=== PATIENT | female | born 1945 | race Caucasian/White ===

== ENCOUNTER 2017-05-26 08:41 | Day surgery (SDC) | payer MEDICARE ==
[2017-05-25 09:14] VITALS: BMI 26.2
[2017-05-26 09:37] LABS: #Basophils 0.1 thou/uL (0.0-0.2); #Eosinphils 0.5 thou/uL (0.0-0.7); #Lymphocytes 2.7 thou/uL (1.20-3.40); #Monocytes 0.9 thou/uL (0.11-0.59); %Basophils 1.3 % (0.0-1.0); %Eosinophils 5.3 % (0.0-10.0); %Lymphocytes 25.9 % (21.0-51.0); %Monocytes 8.6 % (0.0-10.0); %Neutrophils 58.9 % (42.0-75.0); Hemoglobin 14.1 g/dL (12.0-16.0); Mean Corpuscular HGB CONC 33.9 g/dL (32.0-36.0); Mean Corpuscular Hemoglobin 31.9 pg (27.0-31.0); Platelet Count 266 thou/uL (130-400); RBC Distribution Width 10.9 % (11.5-14.5); Red Blood Cell (RBC) Count 4.41 mill/uL (4.20-5.40); White Blood Cell (WBC) Count 10.2 thou/uL (4.8-10.8)
[2017-05-26 09:48] LABS: Anion Gap 13 mmol/L (10-20); BUN (Urea Nitrogen) 13 mg/dL (9.8-20.1); Calc. Creatinine Clearance 89 mL/min (70-130); Calcium 9.5 mg/dL (7.8-10.44); Carbon Dioxide 25 mmol/L (23-31); Chloride 106 mmol/L (98-107); Estimated GFR-MDRD Greater than 90; Glucose 101 mg/dL (83-110); Potassium 3.9 mmol/L (3.5-5.1); Sodium 140 mmol/L (136-145)
[2017-05-26] MEDS ORDERED: CEFAZOLIN/Water 2 GM/20 ML SYRINGE ONE (09:48)
[2017-05-26] MEDS ORDERED: Diprivan 20 ML ONE (10:28)
[2017-05-26] MEDS ORDERED: Promethazine HCl 25 MG/ML VIAL ONE (13:08)
[2017-05-26] MEDS ORDERED: hydrALAZINE 20 MG/ML VIAL ONE (13:43)
[2017-05-26] MEDS ORDERED: Ondansetron ODT 4 MG TAB ONE (15:17)
--- NOTE | 2017-05-26 21:07 | OP ---
DATE OF PROCEDURE: 05/26/2017 PREOPERATIVE DIAGNOSIS: Right knee posterior horn medial meniscus tear. POSTOPERATIVE DIAGNOSES: 1. Right knee posterior horn medial meniscus tear. 2. The patient had an impinging osteophyte off the tibia. 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 PROCEDURES PERFORMED: 1. Right knee arthroscopy with partial medial meniscectomy. 2. Debridement and shaving of aforementioned chondral damage as well as the impinging osteophyte. SURGEON: Hayes Cuellar M.D. AGRONOMY TEACHER: None. BLOOD LOSS: Minimal. COMPLICATIONS: None. ANESTHESIA: The patient had a general anesthetic as well as a local knee block. DISPOSITION: She did go to recovery in stable condition. INDICATIONS: This is a 72-year-old active female, who comes in after failing nonoperative treatment including injections. At this time, she opted to have surgery for meniscus tear. DESCRIPTION OF PROCEDURE: After all appropriate consent forms were explained and signed, she was berna en back to the operating room and at this time was given general anesthetic. Tourniquet was placed o n the right thigh and leg was then placed in an arthroscopic leg rodriguez. The limb was prepped and dr aped in the standard surgical fashion. Limb was exsanguinated and tourniquet was taken up to 300 mmH g. An inferolateral portal was established and the scope was placed into the knee joint. Needle loc alization technique was then used to make a medial working portal. Diagnostic arthroscopy commenced in the notch. The ACL and PCL probed and found to be intact. There was an impinging osteophyte and this was taken down with the shaver. There was also a small cyst off the anterior portion of the ACL as it inserted on the tibia and this was debrided as well. Medial compartment showed the patient to have a tear in the posterior horn and root area of the medial meniscus as well as a small radial tea r in the body and partial meniscectomy was performed using meniscal biter and shaver to both of these areas. The tibia and femur had some grade 2 chondromalacia noted and any unstable chondral flaps we re debrided. The lateral compartment was overall in excellent condition. The gutters were swept thr ough and no loose bodies were noted. Patellofemoral joint showed the patella to have some small area s of cartilage damage with no treatment needed. There was an area of grade 2 and central area with g rade 3 on the trochlea. Again, unstable chondral flaps were debrided. At this time, the scope was r emoved, the knee was drained. Portals were closed with simple nylon stitch. A bulky sterile dressin g was applied and the tourniquet was let down. Toes pinked up nicely. The patient was awakened and taken to the recovery room in stable condition. All counts were correct at the end of the case. She received preoperative IV antibiotics.
== END 2017-05-26 15:30 | disposition home or self-care (01) ==
LOC: SDC 08:41
PROVIDERS: ATTEND Orthopaedic Surgery
PROC: 0SBC4ZZ Excision of Right Knee Joint, Percutaneous Endoscopic Approach (ICD-10-PCS; principal; 2017-05-26)
DX: S83.241A Other tear of medial meniscus, current injury, right knee, initial encounter (principal); M25.761 Osteophyte, right knee; M94.261 Chondromalacia, right knee; M19.90 Unspecified osteoarthritis, unspecified site; J30.9 Allergic rhinitis, unspecified; M81.0 Age-related osteoporosis without current pathological fracture; M26.609 Unspecified temporomandibular joint disorder, unspecified side; I10 Essential (primary) hypertension; K21.9 Gastro-esophageal reflux disease without esophagitis; E78.5 Hyperlipidemia, unspecified; Z79.82 Long term (current) use of aspirin; Z79.899 Other long term (current) drug therapy; Z98.41 Cataract extraction status, right eye; Z98.42 Cataract extraction status, left eye; Z96.1 Presence of intraocular lens; Z98.890 Other specified postprocedural states
CPT/HCPCS: 29881; 80048; 85025; 93005; 96374 ×2; 97139; G8978; G8979; G8980; 36415; 93010; J0360; J2550; J2704; Q0162

== ENCOUNTER 2018-02-22 09:48 | Outpatient (CLI) | payer MEDICARE | END 2018-02-22 09:49 | disposition home or self-care (01) | LOC: BICMAMMO 09:48 | PROVIDERS: ATTEND Internal Medicine | DX: Z12.31 Encounter for screening mammogram for malignant neoplasm of breast (principal); R92.1 Mammographic calcification found on diagnostic imaging of breast; N63.10 Unspecified lump in the right breast, unspecified quadrant; N63.20 Unspecified lump in the left breast, unspecified quadrant | CPT/HCPCS: 77063; 77067 ==

== ENCOUNTER 2018-10-02 15:39 | Outpatient (CLI) | payer MEDICARE ==
--- NOTE | 2018-10-02 16:21 | ULT ---
Thyroid sonogram HISTORY: Thyroid nodule. FINDINGS: Right thyroid lobe is 3.9 cm in length. Near the inferior pole is a well-circumscribed pred ominantly homogeneous and isoechoic solid mass. 1.3 cm length by 1.2 cm depth. A 1.1 cm slightly complex cystic lesion is present near the superior pole. Isthmus is 0.5 cm. Left thyroid lobe is 4.1 cm. The inferior pole is a normal cervical heterogeneous slightly hypoechoic mass. IMPRESSION: Dominant nodule is 1.3 cm the inferior pole right thyroid gland, as detailed above. TI-RA DS level 3. Mildly suspicious. Consider sonographic follow-up.
== END 2018-10-02 15:40 | disposition home or self-care (01) ==
LOC: SCSULT 15:39
PROVIDERS: ATTEND Otolaryngology Plastic Surgery within the Head & Neck
DX: E04.1 Nontoxic single thyroid nodule (principal)
CPT/HCPCS: 76536

== ENCOUNTER 2019-06-07 07:31 | Outpatient (CLI) | payer MEDICARE ==
--- NOTE | 2019-06-07 08:11 | ULT ---
THYROID ULTRASOUND: COMPARISON: 10/02/2018. HISTORY: Followup thyroid nodule. FINDINGS: Thyroid isthmus measures 0.4 cm. Right thyroid lobe: 4.4 x 1.4 x 2.0 cm. Left thyroid lobe: 1.1 x 1.4 x 4.2 cm Thyroid nodules: Isoechoic nodule in the upper pole of the right thyroid lobe measures 1.1 x 0.5 x 0.8 cm. Solid isoec hoic nodule in the mid right thyroid lobe measures 1.3 x 1.3 x 1.2 cm. Increased vascularity is noted. Isoechoic solid nodule in the midpole of the left thyroid lobe measures 0.6 x 0.4 x 0.8 cm. Sm all anechoic cystic lesion in the upper pole of the left thyroid lobe, measures 0.4 cm. IMPRESSION: 1. Multiple solid nodules throughout the thyroid gland. Largest solid nodule is in the midpole of th e right thyroid lobe and currently measures 1.3 x 1.3 x 1.2 cm. Previously, this nodule measured 1.3 x 1.2 x 1.1 cm. No appreciable change. 2. TIRADS calculus score TR3, mildly suspicious. Followup imaging in 1 year is recommended. Transcribed Date/Time: 06/07/2019 8:18 AM
--- NOTE | 2019-06-07 09:15 | MMO ---
Bilateral MAMMO Bilat Screen [facility]. CLINICAL HISTORY: Patient is 74 years old and is seen for screening. The patient has no family history of breast cancer. The patient has no personal history of cancer. The patient has a history of right Excisional Biopsy in 1991 - benign. VIEWS: The views performed were: bilateral craniocaudal with tomosynthesis and bilateral mediolateral oblique with tomosynthesis. FILMS COMPARED: The present examination has been compared to prior imaging studies performed at [facility] on 12/18/2014, 01/19/2016, 02/07/2017 and 02/22/2018. This study has been interpreted with the assistance of computer-aided detection. MAMMOGRAM FINDINGS: The breasts are heterogeneously dense, which could obscure a lesion on mammography. There are benign appearing calcifications seen in both breasts. There are benign scattered densities in both breasts. There are no suspicious masses, suspicious calcifications, or new areas of architectural distortion. IMPRESSION: THERE IS NO MAMMOGRAPHIC EVIDENCE OF MALIGNANCY. A ROUTINE FOLLOW-UP MAMMOGRAM IN 1 YEAR IS RECOMMENDED. THE RESULTS OF THIS EXAM WERE SENT TO THE PATIENT. ACR BI-RADS Category 2 - Benign finding MAMMOGRAPHY NOTE: 1. A negative mammogram report should not delay a biopsy if a dominant of clinically suspicious mass is present. 2. Approximately 10% to 15% of breast cancers are not detected by mammography. 3. Adenosis and dense breasts may obscure an underlying neoplasm. Reported by: JHON OLIVA MD Electonically Signed: [id number]
== END 2019-06-07 07:32 | disposition home or self-care (01) ==
LOC: BICULT 07:31
PROVIDERS: ATTEND Otolaryngology Plastic Surgery within the Head & Neck
DX: Z12.31 Encounter for screening mammogram for malignant neoplasm of breast (principal); E04.2 Nontoxic multinodular goiter; Z91.89 Other specified personal risk factors, not elsewhere classified
CPT/HCPCS: 76536; 77063; 77067

== ENCOUNTER 2020-06-09 13:48 | Outpatient (CLI) | payer MEDICARE ==
--- NOTE | 2020-06-09 14:11 | MMO ---
Bilateral MAMMO Bilat Screen [facility]. CLINICAL HISTORY: Patient is 75 years old and is seen for screening. The patient has no family history of breast cancer. The patient has no personal history of cancer. The patient has a history of right Excisional Biopsy in 1991 - benign. VIEWS: The views performed were: bilateral craniocaudal with tomosynthesis and bilateral mediolateral oblique with tomosynthesis. FILMS COMPARED: The present examination has been compared to prior imaging studies performed at [facility] on 01/19/2016, 02/07/2017, 02/22/2018 and 06/07/2019. This study has been interpreted with the assistance of computer-aided detection. MAMMOGRAM FINDINGS: The breasts are heterogeneously dense, which could obscure a lesion on mammography. There are stable benign appearing calcifications seen in both breasts. Nodularity is stable. There are no suspicious masses, suspicious calcifications, or new areas of architectural distortion. IMPRESSION: THERE IS NO MAMMOGRAPHIC EVIDENCE OF MALIGNANCY. A ROUTINE FOLLOW-UP MAMMOGRAM IN 1 YEAR IS RECOMMENDED. THE RESULTS OF THIS EXAM WERE SENT TO THE PATIENT. ACR BI-RADS Category 2 - Benign finding MAMMOGRAPHY NOTE: 1. A negative mammogram report should not delay a biopsy if a dominant of clinically suspicious mass is present. 2. Approximately 10% to 15% of breast cancers are not detected by mammography. 3. Adenosis and dense breasts may obscure an underlying neoplasm. Reported by: MAYRA MEJIA MD Electonically Signed: [id number]
--- NOTE | 2020-06-09 14:52 | ULT ---
Exam: Thyroid ultrasound COMPARISON: 06/07/2019 HISTORY: Follow-up thyroid nodule FINDINGS: Thyroid isthmus: 0.3 cm Right thyroid lobe: 4.5 x 1.9 x 1.7 cm Left thyroid lobe: 3.9 x 1.4 x 1.5 cm Thyroid nodules: Right thyroid lobe: Multiple solid nodules. Largest nodule is in the mid pole measur ing 1.3 x 1.5 x 1.4 cm. Nodule is well-circumscribed and isoechoic. Left thyroid lobe: Multiple subcentimeter solid nodules. There may be a small 0.2 cm cyst. IMPRESSION: 1. Dominant solid nodule in the right thyroid lobe. BI-RADS score TR 3, mildly suspicious. Follow-up ultrasound in one year is recommended Transcribed Date/Time: 06/09/2020 3:06 PM
== END 2020-06-09 13:49 | disposition home or self-care (01) ==
LOC: BICMAMMO 13:48
PROVIDERS: ATTEND Internal Medicine
DX: Z12.31 Encounter for screening mammogram for malignant neoplasm of breast (principal); E04.1 Nontoxic single thyroid nodule
CPT/HCPCS: 76536; 77063; 77067

== ENCOUNTER 2021-06-15 14:13 | Outpatient (CLI) | payer MEDICARE | END 2021-06-15 14:14 | disposition home or self-care (01) | LOC: BICULT 14:13 | PROVIDERS: ATTEND Otolaryngology Plastic Surgery within the Head & Neck | DX: E04.2 Nontoxic multinodular goiter (principal) | CPT/HCPCS: 76536 ==

== ENCOUNTER 2021-06-15 14:31 | Outpatient (CLI) | payer MEDICARE | END 2021-06-15 14:32 | disposition home or self-care (01) | LOC: BICMAMMO 14:31 | PROVIDERS: ATTEND Internal Medicine | DX: Z12.31 Encounter for screening mammogram for malignant neoplasm of breast (principal) | CPT/HCPCS: 77063; 77067 ==

== ENCOUNTER 2022-08-10 11:47 | Outpatient (CLI) | payer MEDICARE | END 2022-08-10 11:48 | disposition home or self-care (01) | LOC: BICULT 11:47 | PROVIDERS: ATTEND Internal Medicine | DX: E04.1 Nontoxic single thyroid nodule (principal) | CPT/HCPCS: 76536 ==

== ENCOUNTER 2023-09-27 09:40 | Outpatient (CLI) | payer MEDICARE | END 2023-09-27 09:41 | disposition home or self-care (01) | LOC: BICMAMMO 09:40 | PROVIDERS: ATTEND Internal Medicine | DX: Z12.31 Encounter for screening mammogram for malignant neoplasm of breast (principal); Z91.89 Other specified personal risk factors, not elsewhere classified | CPT/HCPCS: 77063; 77067 ==

== ENCOUNTER 2023-10-11 08:12 | Outpatient (CLI) | payer MEDICARE ==
[2023-10-11 10:05] LABS: #Basophils 0.11 10x3/uL (0.0-0.2); #Eosinphils 0.61 10x3/uL (0.0-0.5); #Monocytes 0.79 10x3/uL (0.0-1.1); #Neutrophils 5.18 10x3/uL (1.5-8.4); %Basophils 1.2 % (0.0-2.0); %Eosinophils 6.8 % (0.0-6.0); %Lymphocytes 25.4 % (18.0-47.0); %Monocytes 8.8 % (0.0-10.0); %Neutrophils 57.6 % (40.0-75.0); Hematocrit 38.6 % (34.9-44.5); Hemoglobin 12.9 g/dL (12.0-15.5); Mean Corpuscular HGB CONC 33.4 g/dL (32.0-36.0); Mean Corpuscular Hemoglobin 30.7 pg (27.0-33.0); Mean Corpuscular Volume 91.9 fl (81.6-98.3); Mean Platelet Volume 11.6 fl (7.4-10.4); Platelet Count 278 10x3/uL (150-450)
[2023-10-11 10:20] LABS: Anion Gap 17 mmol/L (10-20); BUN (Urea Nitrogen) 14 mg/dL (9.8-20.1); Calc. Creatinine Clearance 0 mL/min (70-130); Calcium 9.3 mg/dL (7.8-10.44); Carbon Dioxide 23 mmol/L (23-31); Chloride 108 mmol/L (98-107); Estimated GFR 89; Glucose 101 mg/dL (83-110); Potassium 4.3 mmol/L (3.5-5.1); Sodium 144 mmol/L (136-145)
== END 2023-10-11 08:13 | disposition home or self-care (01) ==
LOC: LABBT 08:12
PROVIDERS: ATTEND Orthopaedic Surgery Hand Surgery
DX: Z01.818 Encounter for other preprocedural examination (principal); M18.0 Bilateral primary osteoarthritis of first carpometacarpal joints
CPT/HCPCS: 80048; 85025; 93005; 93010

== ENCOUNTER 2023-10-17 05:42 | Day surgery (SDC) | payer MEDICARE ==
[2023-10-11 08:42] VITALS: BMI 25.2
[2023-10-17] MEDS ORDERED: Bacitracin Zinc Ointment 30 gm TUBE ONE (06:16)
[2023-10-17] MEDS ORDERED: PROPOFOL 20 ML ONE (06:32)
[2023-10-17] MEDS ORDERED: Lidocaine 1% PF 5 ML VIAL ONE (06:32)
[2023-10-17] MEDS ORDERED: fentaNYL PF 100 MCG/2 ML SYRINGE ONE (06:32)
[2023-10-17] MEDS ORDERED: Sodium Chloride 0.9% 100 ML ONE (06:58)
[2023-10-17] MEDS ORDERED: CEFAZOLIN 2 GM VIAL ONE (06:58)
[2023-10-17] MEDS ORDERED: Rocuronium Bromide 10 MG/ML (10ML VIAL) ONE (07:12)
[2023-10-17] MEDS ORDERED: Bupivacaine PF 0.5% 30 ML VIAL ONE (07:13)
[2023-10-17] MEDS ORDERED: fentaNYL 50 mcg/mL 1 mL Vial ONE (07:13)
[2023-10-17] MEDS ORDERED: Bupivacaine HCl 0.5%/Epinephrine 1:200,000/PF 30 ml Vial ONE (07:20)
[2023-10-17] MEDS ORDERED: ePHEDrine Sulfate 50 MG/10 ML VIAL ONE (07:56)
[2023-10-17] MEDS ORDERED: SUGAMMADEX SODIUM 200 MG/2 ML VIAL ONE (09:34)
[2023-10-17] MEDS ORDERED: Dexamethasone 4 mg/ml Vial ONE (09:34)
[2023-10-17] MEDS ORDERED: Ondansetron PF 4 MG/2 ML Vial ONE (09:34)
== END 2023-10-17 13:45 | disposition home or self-care (01) ==
LOC: SDC 05:42
PROVIDERS: ATTEND Orthopaedic Surgery Hand Surgery
PROC: 0RQT0ZZ Repair Left Carpometacarpal Joint, Open Approach (ICD-10-PCS; principal; 2023-10-17)
DX: M18.12 Unilateral primary osteoarthritis of first carpometacarpal joint, left hand (principal); M85.80 Other specified disorders of bone density and structure, unspecified site; M75.22 Bicipital tendinitis, left shoulder; M75.42 Impingement syndrome of left shoulder; I10 Essential (primary) hypertension; E78.00 Pure hypercholesterolemia, unspecified; Z87.19 Personal history of other diseases of the digestive system; Z98.890 Other specified postprocedural states; Z79.899 Other long term (current) drug therapy
CPT/HCPCS: 25447; 64415; 73110; C1713 ×2; C1894; J0665; J1100; J2405; J2704; J3010; J3490

== ENCOUNTER 2025-01-22 10:59 | Outpatient (CLI) | payer MEDICARE ==
[2025-01-22 12:45] LABS: #Basophils 0.12 10x3/uL (0.0-0.2); #Eosinophils 0.64 10x3/uL (0.0-0.7); #Monocytes 0.81 10x3/uL (0.11-0.59); #Neutrophils 5.79 10x3/uL (1.40-6.50); %Basophils 1.2 % (0.0-1.0); %Eosinophils 6.4 % (0.0-10.0); %Lymphocytes 25.9 % (21.0-51.0); %Monocytes 8.1 % (0.0-10.0); %Neutrophils 58.2 % (42.0-75.0); Hematocrit 41.9 % (36.0-47.0); Hemoglobin 13.2 g/dL (12.0-16.0); Mean Corpuscular Hemoglobin 29.5 pg (27.0-31.0); Mean Corpuscular Volume 93.5 fL (78.0-98.0); Platelet Count 298 10x3/uL (130-400); Red Blood Cell (RBC) Count 4.48 mill/uL (4.20-5.40); White Blood Cell (WBC) Count 9.96 10x3/uL (4.8-10.8)
[2025-01-22 13:10] LABS: Anion Gap 15 mmol/L (10-20); BUN (Urea Nitrogen) 9 mg/dL (9.8-20.1); Calc. Creatinine Clearance 0 mL/min (70-130); Calcium 9.1 mg/dL (7.8-10.44); Carbon Dioxide 25 mmol/L (23-31); Chloride 104 mmol/L (98-107); Glucose 131 mg/dL (83-110); Potassium 3.7 mmol/L (3.5-5.1); Sodium 140 mmol/L (136-145)
[2025-01-22 13:13] LABS: INR-International Normal Ratio 1.0; Prothrombin Time 13.1 sec (12.0-14.7)
[2025-01-22 14:53] LABS: Bacteria/HPF None Seen HPF (None Seen); Glucose, Urine (Dipstick) Normal (Negative); Leukocyte Negative Leu/uL (Negative); Protein, Urine (Dipstick) Negative (Neg-Trace); RBC/HPF 0-3 HPF (0-3); Specific Gravity, Urine 1.008 (1.002-1.036); WBC/HPF 0-3 HPF (0-3)
== END 2025-01-22 11:00 | disposition home or self-care (01) ==
LOC: LABBT 10:59
PROVIDERS: ATTEND Orthopaedic Surgery
DX: Z01.818 Encounter for other preprocedural examination (principal); M17.11 Unilateral primary osteoarthritis, right knee
CPT/HCPCS: 71046; 80048; 81001; 85025; 85610; 87081; 93005; 93010

== ENCOUNTER 2025-01-22 11:46 | Outpatient (CLI) | payer MEDICARE | END 2025-01-22 11:47 | disposition home or self-care (01) | LOC: CT 11:46 | PROVIDERS: ATTEND Orthopaedic Surgery | DX: Z01.818 Encounter for other preprocedural examination (principal); M17.11 Unilateral primary osteoarthritis, right knee; R19.09 Other intra-abdominal and pelvic swelling, mass and lump | CPT/HCPCS: 71046; 80048; 81001; 85025; 85610; 87081; 93005; 93010 ==

== ENCOUNTER 2025-01-24 14:45 | Outpatient (CLI) | payer MEDICARE | END 2025-01-24 14:46 | disposition home or self-care (01) | LOC: ULT 14:45 | PROVIDERS: ATTEND Orthopaedic Surgery | DX: N83.8 Other noninflammatory disorders of ovary, fallopian tube and broad ligament (principal) | CPT/HCPCS: 76856; 93976 ==

== ENCOUNTER 2025-01-28 14:25 | Outpatient (CLI) | payer MEDICARE | END 2025-01-28 14:26 | disposition home or self-care (01) | LOC: SCSMRI 14:25 | PROVIDERS: ATTEND Orthopaedic Surgery | DX: N94.89 Other specified conditions associated with female genital organs and menstrual cycle (principal); D21.5 Benign neoplasm of connective and other soft tissue of pelvis | CPT/HCPCS: 72197 ==

== ENCOUNTER 2025-02-05 09:58 | Observation (INO) | payer MEDICARE ==
[2025-02-04 13:00] VITALS: BMI 18.6
[2025-02-05] MEDS ORDERED: Vancomycin 1 GM/200 ML (FROZEN) BAG ONE (10:15)
[2025-02-05] MEDS ORDERED: Tranexamic Acid 1,000 MG/10 ML VIAL ONE (10:15)
[2025-02-05] MEDS ORDERED: Ropivacaine 0.5% HCl/PF (150 MG/30 ML VIAL) ONE (12:15)
[2025-02-05] MEDS ORDERED: Ondansetron PF 4 MG/2 ML Vial ONE (12:24)
[2025-02-05] MEDS ORDERED: fentaNYL PF 100 MCG/2 ML SYRINGE ONE ×2 (12:24→14:45)
[2025-02-05] MEDS ORDERED: PROPOFOL 20 ML ONE (12:24)
[2025-02-05] MEDS ORDERED: Lidocaine 1% PF 5 ML VIAL ONE ×2 (12:24→13:05)
[2025-02-05] MEDS ORDERED: Lidocaine 2% 6 ML (Jelly) SYR ONE (12:25)
[2025-02-05] MEDS ORDERED: CEFAZOLIN 2 GM VIAL ONE (12:42)
[2025-02-05] MEDS ORDERED: Ropivacaine 0.2% 550 ML 550 ML NERVE BLCK SCH (12:45)
[2025-02-05] MEDS ORDERED: Ondansetron PF 4 MG/2 ML Vial IVP PRN ×2 (12:45→14:25)
[2025-02-05] MEDS ORDERED: HYDROcodone/Acetaminophen 10/325 mg Tablet PO PRN ×2 (12:45)
[2025-02-05] MEDS ORDERED: Sevoflurane 250 ML INH ANEST BOTTLE ONE (12:55)
[2025-02-05] MEDS ORDERED: PHENYLEPHRINE-NS 100 MCG/ML 10 ML SYRINGE ONE ×2 (13:10→14:11)
[2025-02-05] MEDS ORDERED: Acetaminophen 325 MG TAB PO PRN (14:25)
[2025-02-05] MEDS ORDERED: diphenhydrAMINE 25 MG CAP PO PRN (14:25)
[2025-02-05] MEDS: Rosuvastatin 5 MG TAB PO SCH (21:11)
[2025-02-05] MEDS: Senokot S 8.6-50 MG TAB PO SCH (21:12)
[2025-02-05] MEDS: Ferrous Gluconate 324 MG TAB PO SCH (21:12)
[2025-02-05] MEDS: Aspirin 81 mg Enteric Coated Tablet PO SCH (21:13)
[2025-02-05] MEDS: Ketorolac Tromethamine 30 MG (1 mL) VIAL IVP SCH (21:24)
[2025-02-05] MEDS: Vancomycin 1.5 GM / NS 500 ML VIAL-2-BAG IVPB SCH (22:03)
[2025-02-06 06:04] LABS: Hematocrit 33.0 % (36.0-47.0); Hemoglobin 10.7 g/dL (12.0-16.0); Mean Corpuscular Hemoglobin 29.9 pg (27.0-31.0); Mean Corpuscular Volume 92.2 fL (78.0-98.0); Platelet Count 233 10x3/uL (130-400); Red Blood Cell (RBC) Count 3.58 mill/uL (4.20-5.40); White Blood Cell (WBC) Count 22.94 10x3/uL (4.8-10.8)
[2025-02-06 07:42] VITALS: BP 127/58; TEMP 97.7
[2025-02-06] MEDS ORDERED: Non-Formulary Item 1 EACH (Multivitamin [Multivitamin] 1 EACH Tablet) PO SCH (09:00)
[2025-02-06] MEDS: Cholecalciferol 1,000 UNITS (25 MCG) TAB PO SCH (09:15)
[2025-02-06] MEDS: Multivitamin W/ Minerals 1 TAB PO SCH (09:16)
[2025-02-06] MEDS: Famotidine 20 MG TAB PO SCH (09:16)
[2025-02-06] MEDS: Losartan 25 MG TAB PO SCH (09:19)
[2025-02-06 10:27] VITALS: BMI 18.6
== END 2025-02-06 11:03 | disposition home or self-care (01) ==
LOC: SDC 09:58 → SURG A 14:25
PROVIDERS: ADMIT Orthopaedic Surgery; ATTEND Orthopaedic Surgery
PROC: 0SRC0JZ Replacement of Right Knee Joint with Synthetic Substitute, Open Approach (ICD-10-PCS; principal; 2025-02-05)
PROC: 3E0T3BZ Introduction of Anesthetic Agent into Peripheral Nerves and Plexi, Percutaneous Approach (ICD-10-PCS; 2025-02-05)
DX: M17.11 Unilateral primary osteoarthritis, right knee (principal); M22.41 Chondromalacia patellae, right knee; M84.461A Pathological fracture, right tibia, initial encounter for fracture; S83.241A Other tear of medial meniscus, current injury, right knee, initial encounter; E78.00 Pure hypercholesterolemia, unspecified; Z96.1 Presence of intraocular lens; Z79.899 Other long term (current) drug therapy; X58.XXXA Exposure to other specified factors, initial encounter
CPT/HCPCS: 0055T; 27447; 64448; 36415; 85027; A4306; C1713; C1776; C1889; J0665; J1010; J1100; J1885; J2250; J2704; J2795; J3373; J7030